=== PATIENT | male | born 1940 | race Caucasian/White ===

== ENCOUNTER 2017-09-13 08:18 | Emergency (ER) | payer OTHER ==
[~2017-09-13] VITALS: Ht 175.3 cm; Wt 88.9 kg
[2017-09-13] MEDS ORDERED: PLAVIX 75 MG TA75 MG PO (08:32)
[2017-09-13] MEDS ORDERED: ADVAIR HFA 230M12 GM INH (08:32)
[2017-09-13] MEDS ORDERED: PROTONIX40 M1 PO (08:32)
[2017-09-13] MEDS ORDERED: FLOMAX0.4 MG PO (08:33)
[2017-09-13] MEDS ORDERED: PROSCAR 5MG TABL5 MG PO (08:33)
[2017-09-13] MEDS ORDERED: CHILDREN'S ASPI81 M1 PO (08:34)
[2017-09-13] MEDS ORDERED: CINNAMON ALPHA1 EACH PO (08:34)
[2017-09-13] MEDS ORDERED: CALCIUM 500 +1 EAC5 PO (08:34)
[2017-09-13] MEDS ORDERED: FISH OIL 1,001000 M2 PO (08:34)
[2017-09-13] MEDS ORDERED: MELATONIN5 M1 PO (08:39)
[2017-09-13 08:45] LABS: HEMATOCRIT 41.9 % (42.0-52.0); HEMOGLOBIN 14.4 gm/dL (14.0-18.0); MCH 31.1 pg (26.0-34.0); MCHC 34.4 g/dL (28.0-37.0); MCV 90.3 fL (80.0-100.0); MPV 8.5 fl. (7.2-11.1); NUCLEATED RBCS 0 /100WBC; PLATELET COUNT* 268 thou/uL (150-400); RBC 4.64 mil/uL (4.50-6.00); WBC 20.1 thou/uL (4.0-11.0)
[2017-09-13 08:52] LABS: ANION GAP 10 mmol/L (7-16); BUN 12 mg/dL (7-18); CALCIUM 8.9 mg/dL (8.5-10.1); CHLORIDE 103 mmol/L (98-107); CO2 25 mmol/L (21-32); GLUCOSE 133 mg/dL (70-99); POTASSIUM 3.9 mmol/L (3.5-5.1); SODIUM 138 mmol/L (136-145)
[2017-09-13 08:59] LABS: ALBUMIN 3.2 g/dL (3.4-5.0); ALKALINE PHOSPHATASE 140 U/L (46-116); LIPASE 168 U/L (73-393); SGOT 44 U/L (15-37); SGPT 47 U/L (30-65); TOTAL BILIRUBIN 0.8 mg/dL (<0.1-1.0); TOTAL PROTEIN 7.4 g/dL (6.4-8.2); TROPONIN-I LEVEL <0.06 ng/mL (<0.06)
[2017-09-13 09:20] LABS: ABSOLUTE LYMPHOCYTES 2.4 thou/uL (0.8-5.3); ABSOLUTE MONOCYTES 0.8 thou/uL (0.0-1.2); ABSOLUTE NEUTROPHILS 16.9 thou/uL (1.6-8.1)
[2017-09-13 09:21] LABS: PLATELET ESTIMATE ADEQUATE
[2017-09-13 10:21] LABS: URINE BILIRUBIN NEGATIVE (Negative); URINE BLOOD NEGATIVE (Negative); URINE CLARITY CLEAR; URINE COLOR YELLOW; URINE GLUCOSE-RANDOM NEGATIVE (Negative); URINE KETONES 1+ (Negative); URINE LEUKOCYTES-REFLEX NEGATIVE (Negative); URINE NITRITE-REFLEX NEGATIVE (Negative); URINE PROTEIN NEGATIVE (Negative)
[2017-09-13 11:23] VITALS: BP 112/64
--- NOTE | 2017-09-13 13:27 | EKG ---
[place] [address] ELECTROCARDIOGRAM REPORT Name: MAHAMED CALDERON Room: [facility]#: [id number] Admission: 09/13/17 Attend Phys: Discharge: 09/13/17 Date of : 44 Report #: [id number] THIS REPORT FOR: //name// [facility] ED Test Date: 2017-09-13 Test Time: 08:34:04 Pat Name: MAHAMED CALDERON Department: Room: Gender: M Customs Verifier: Jaswinder BARAJAS : 1940 Requested By: Judi Chin Order Number: [id number] MD: Solomon Oneal Measurements Intervals [place] Rate: 93 P: 15 AR: 161 QRS: -26 QRSD: 147 T: 2 QT: 378 QTc: 471 Interpretive Statements Sinus rhythm Right bundle branch block Baseline wander in lead(s) V2,V6 No previous ECG available for comparison Electronically Signed On 09-13-2017 13:27:29 CDT by Solomon Oneal [email or web address] <ELECTRONICALLY SIGNED> By: Solomon Oneal MD, [facility] 09/13/17 1327 3 3 Solomon Oneal MD, FACC /EPI
== END 2017-09-13 11:19 | disposition home or self-care (01) ==
LOC: M.ERS 08:18
PROVIDERS: Personal Emergency Response Attendant
DX: E86.0 Dehydration (principal); R11.2 Nausea with vomiting, unspecified; J44.9 Chronic obstructive pulmonary disease, unspecified; Z90.49 Acquired absence of other specified parts of digestive tract; Z86.73 Personal history of transient ischemic attack (TIA), and cerebral infarction without residual deficits; Z90.89 Acquired absence of other organs; Z88.8 Allergy status to other drugs, medicaments and biological substances